=== PATIENT | female | born 1970 | race Two or more races ===

== ENCOUNTER → 2022-12-04 | Outpatient (CLI) | payer OTHER ==
[2022-12-04 10:53] LABS: Calcium 9.5 mg/dL (8.5-10.1); Potassium 4.1 mmol/L (3.5-5.1)
[2022-12-04 10:58] LABS: BUN/Creatinine Ratio 7.6 (10.0-20.0); Phosphorus 3.8 mg/dL (2.5-4.90)
== END | disposition home or self-care (01) ==
LOC: LAB 09:56
PROVIDERS: ATTEND Family Medicine
DX: M25.511 Pain in right shoulder (principal)
CPT/HCPCS: 36415; 80069; 82565